=== PATIENT | female | born 1975 | race Hispanic/Latino ===

== ENCOUNTER 2019-07-04 18:36 | Emergency (ER) | payer SELFPAY ==
--- NOTE | 2019-07-04 20:28 | RAD ---
THREE VIEWS OF THE RIGHT SMALL FINGER: 07/04/19 COMPARISON: None. HISTORY: Right small finger laceration on glass. FINDINGS: Three views of the right small finger shows no evidence of acute fracture or dislocation. No soft tis arabella swelling is seen. No degenerative changes are present. IMPRESSION: No evidence of acute osseous abnormality. POS: [facility]
[2019-07-04] MEDS ORDERED: Lidocaine 1% (PF) 30 ML VIAL ONE (21:17)
== END 2019-07-04 22:02 | disposition home or self-care (01) ==
LOC: ERS 18:36
DX: S61.216A Laceration without foreign body of right little finger without damage to nail, initial encounter (principal); F17.210 Nicotine dependence, cigarettes, uncomplicated; F41.9 Anxiety disorder, unspecified; F32.9 Major depressive disorder, single episode, unspecified; W25.XXXA Contact with sharp glass, initial encounter
CPT/HCPCS: 12001; J2001

== ENCOUNTER 2019-07-11 10:27 | Emergency (ER) | payer SELFPAY | END 2019-07-11 10:56 | disposition home or self-care (01) | LOC: ERS 10:27 | DX: S61.411D Laceration without foreign body of right hand, subsequent encounter (principal); X58.XXXD Exposure to other specified factors, subsequent encounter ==